=== PATIENT | male | born 1985 | race Caucasian/White ===

== ENCOUNTER 2018-04-21 20:41 | Emergency (ER) | payer BC ==
[~2018-04-21] VITALS: Ht 175.3 cm; Wt 100.0 kg
[2018-04-21 21:04] VITALS: BP 151/76; PULSE 76; RESP 24; O2SAT 99
--- NOTE | 2018-04-21 22:55 | PD ---
HPI Chief Complaint: Complaint Time Seen by Provider: 22:43 Travel History International Travel<30 days: No Contact w/Intl Traveler<30days: No Traveled to known affect area: No History of Present Illness HPI 33-year-old male the presents to the ED for evaluation of right flank pain. Per patient has had this since this afternoon. Per patient became more severe 10 out of 10 pain and he thought it was just related to muscle but when it became more severe he thought of something else. He does tell me that he has a family history of kidney stones. He never has had one himself. Per patient the pain move all the way to his testicle. Per patient he felt like he had to go but nothing actually happened. Per patient he was finally able to go before coming to the room in the ED and he noticed that he had some darkening of the urine as well as "a small brown thing". Per patient he still has some pain in the pain now is 2 out of 10. He did not took anything for this. No other medical issues. No bowel movement issues. No blood in the urine at this time. He does state that he has nausea and vomit initially but not anymore. PFSH Past Medical History Migraines: Yes ?: Not Past Surgical History Cholecystectomy: Yes Social History Alcohol Use: No Tobacco Use: No Substance Use: No Allergies-Medications (Allergen,Severity, Reaction): Coded Allergies: No Known Allergies (Verified Allergy, Unknown, 04/21/18) Review of Systems Except as stated in HPI: all other systems reviewed are Neg Physical Exam Narrative GENERAL: SKIN: Warm and dry. HEAD: Atraumatic. Normocephalic. EYES: Pupils equal and round. No scleral icterus. No injection or drainage. ENT: No nasal bleeding or discharge. Mucous membranes pink and moist. Tongue is midline. No uvula deviation. NECK: Trachea midline. No JVD. CARDIOVASCULAR: Regular rate and rhythm. No murmurs, S3, S4. RESPIRATORY: No accessory muscle use. Clear to auscultation. Breath sounds equal bilaterally. GASTROINTESTINAL: Abdomen soft, non-tender, nondistended. Hepatic and splenic margins not palpable. MUSCULOSKELETAL: Extremities without clubbing, cyanosis, or edema. No obvious deformities. Full range of motion of the upper and lower extremity bilaterally. 2+ pulses bilaterally. Some pain reproducible on the right lumbar musculature. No CVA tenderness. NEUROLOGICAL: Awake and alert. No obvious cranial nerve deficits. Motor grossly within normal limits. Five out of 5 muscle strength in the arms and legs. Normal speech. PSYCHIATRIC: Appropriate mood and affect; insight and judgment normal. Data Data Last Documented VS Vital Signs Date Time Temp Pulse Resp B/P (MAP) Pulse Ox O2 Delivery O2 Flow Rate FiO2 04/21/18 21:04 76 24 151/76 (101) 99 Orders Orders Urinalysis - C+S If Indicated (04/21/18 22:34) Ct Abd/Pel W/O Iv Contrast (04/21/18 ) MDM Medical Decision Making Medical Screen Exam Complete: Yes Emergency Medical Condition: Yes Medical Record Reviewed: Yes Differential Diagnosis Kidney stone versus kidney infection versus normal exam Narrative Course 33-year-old male that presents to the ED for evaluation of possible kidney stone. Patient was properly examined and was found to have signs and symptoms consistent appears to be likely kidney stone. Still has some pain. At this time a recommend CT scan and urine. Case will be sent up to my attending pending disposition and plan. Benji Barry Apr 21, 2018 22:55
[2018-04-21 23:17] LABS: BACTERIA, URINE RARE /hpf; BILIRUBIN, URINE NEG (NEG); BLOOD, URINE LARGE (NEG); GLUCOSE,URINE NEG (NEG); HYALINE CAST, URINE 13 /lpf (RARE); KETONE, URINE NEG (NEG); MUCUS URINE MOD /lpf (OCC); NITRITE,URINE NEG (NEG); SQUAMOUS EPITHELIAL CELL URINE <1 /hpf (0-5); URINE COLOR Amber (YELLW/STRAW); URINE LEUKOCYTE ESTERASE NEG (NEG)
[2018-04-22] MEDS ORDERED: KETOROLAC TROMETHAMINE 30 MG/ML (IVP) VIAL IV PUSH ONE
[2018-04-22] MEDS ORDERED: SODIUM CHLOR 0.9% 1000 ML INJ 1,000 ML IV ONE
--- NOTE | 2018-04-22 00:30 | PD ---
Physical Exam Date Seen by Provider: Apr 22, 2018 Time Seen by Provider: 00:29 Narrative pt has large blood in URINE and innumerable RBC pt thinks he passed the stone into the toilet bowel , pt says his pain is 3/10 before toradol and now no pain , . the pain was 10/10 before arrival then in waiting room lessened and waxed and waned, pt awaiting CT to locate if hydronephrosis or stone still in collecting system Data Data Last Documented VS Vital Signs Date Time Temp Pulse Resp B/P (MAP) Pulse Ox O2 Delivery O2 Flow Rate FiO2 04/21/18 21:04 76 24 151/76 (101) 99 Orders Orders Urinalysis - C+S If Indicated (04/21/18 22:34) Ketorolac Inj (Toradol Inj) (04/22/18 00:00) Sodium Chlor 0.9% 1000 Ml Inj (Ns 1000 M (04/22/18 00:00) Ct Abd/Pel W/O Iv Contrast (04/22/18 ) Ed Discharge Order (04/22/18 02:20) Labs Laboratory Tests Test 04/21/18 22:40 Urine Color Noelle Urine Turbidity CLOUDY Urine pH 5.0 Urine Specific [place] 1.023 Urine Protein NEG mg/dL Urine Glucose (UA) NEG mg/dL Urine Ketones NEG mg/dL Urine Occult Blood LARGE Urine Nitrite NEG Urine Bilirubin NEG Urine Urobilinogen LESS THAN 2 mg/dL Urine Leukocyte Esterase NEG Urine RBC /hpf Urine WBC 3 /hpf Urine Squamous Epithelial Cells <1 /hpf Urine Bacteria RARE /hpf Urine Hyaline Casts 13 /lpf Urine Mucus MOD /lpf Microscopic Urinalysis Comment CULT NOT INDICATED MDM Medical Record Reviewed: Yes Supervised Visit with MARIA TERESA: Yes Differential Diagnosis renal stone recently passed vs hydronephrosis vs other Narrative Course Patient feels much better he is given Toradol 30 and then IV fluid CAT scan shows no obvious stone most likely patient did pass a stone in the bathroom of the waiting room he reports a small little stone in the toilet is discharged home with pain meds and neurology follow-up is given Dr. Quinn is number patient is pain-free upon leaving ER Diagnosis Primary Impression: Kidney stones Referrals: Maximo Quinn DO Patient Instructions: General Instructions, Kidney Stones (ED) Scripts Hydrocodone-Acetaminophen (Hydrocodone-Acetaminophen) 5-325 mg Tab 1 TAB PO Q6H Y for PAIN, #10 TAB 0 Refills Prov: Carlos Marcos MD 04/22/18 Ibuprofen (Ibuprofen) 800 Mg Tab 800 MG PO Q6HR Y for PAIN, #40 TAB 0 Refills Prov: Carlos Marcos MD 04/22/18 Disposition: 01 DISCHARGE HOME Condition: Good Carlos Marcos MD Apr 22, 2018 00:30
--- NOTE | 2018-04-22 01:36 | RADRPT ---
EXAM DATE: 04/22/2018 1:21 AM EDT AGE/SEX: 33 years / Male INDICATIONS: Right flank pain. CLINICAL DATA: This is the patient's initial encounter. Patient reports that signs and symptoms have been present for 1 day and indicates a pain score of 8/10. MEDICAL/SURGICAL HISTORY: None. Cholecystectomy. RADIATION DOSE: 20.32 CTDI (mGy) COMPARISON: No prior exams available for comparison. TECHNIQUE: Multiple contiguous axial images were obtained through the abdomen. Images were obtained using multiple row detector helical technique. Using automated exposure control and adjustment of the mA and/or kV according to patient size, radiation dose was kept as low as reasonably achievable to o btain optimal diagnostic quality images. DICOM format image data is available electronically for rev iew and comparison. FINDINGS: Lower Lungs: The visualized lower lungs are clear. Liver: The liver has a homogeneous density without space-occupying lesion. There is no dilation of th e biliary tree. The patient is status post cholecystectomy. Spleen: Homogeneous density without enlargement. Pancreas: Unremarkable without mass or calcification. Kidneys: Normal in size and shape. No evidence of mass or hydronephrosis. There is mild indistinctne ss and apparent inflammatory change surrounding the proximal right ureter best seen axial images appe ars 63 through 70. There is no calcified stone. Adrenal Glands: Unremarkable. Aorta: The aorta and proximal iliac vessels are grossly unremarkable without aneurysmal dilation. Bowel/Mesentery: The bowel loops are grossly unremarkable. The cecum and sigmoid colon have a normal configuration. Abdominal Wall: Intact. Retroperitoneum: No evidence of adenopathy in the retrocrural, para-aortic, or deep pelvic regions. Bladder: Contours are smooth. Reproductive Organs: No abnormal masses or calcifications seen. Inguinal: The inguinal region is unremarkable without evidence of adenopathy. Bony Structures: Unremarkable. CONCLUSION: 1. The kidneys are unremarkable in appearance with no renal calculi or obstruction. 2. Mild indistinctness and apparent inflammatory change surrounding the proximal right ureter with n o definite calcified ureteral calculi identified. Electronically signed by: Paul Johnson MD 04/22/2018 1:35 AM EDT
[2018-04-22] MEDS ORDERED: HYDR-3516 PO (02:20)
[2018-04-22] MEDS ORDERED: IBUP1TAB7 PO (02:20)
== END 2018-04-22 02:39 | disposition home or self-care (01) ==
LOC: NEPE 20:41
DX: N20.0 Calculus of kidney (principal)
CPT/HCPCS: 74176; 81001; 96361; 96374; 99284; J1885; J7030